=== PATIENT | male | born 2000 | race Caucasian/White ===

== ENCOUNTER 2025-01-16 20:48 | Emergency (ER) | payer OTHER ==
[~2025-01-16] VITALS: Ht 180.3 cm; Wt 122.5 kg
[2025-01-16 20:48] VITALS: BP 160/69
[2025-01-16] MEDS ORDERED: TRAZ150T75 PO (21:01)
[2025-01-16 21:55] LABS: PLATELET COUNT (AUTO) 276 K/uL (152-348); RED BLOOD CELL COUNT(AUTO) 5.34 MIL/uL (4.06-5.63); RED CELL DISTRIBUTION WIDTH 12.4 % (12.1-16.2); WHITE BLOOD COUNT (AUTO) 11.5 K/uL (3.6-10.2)
[2025-01-16 21:56] LABS: *BILIRUBIN,URIN NEGATIVE (NEGATIVE); *BLOOD, URINE NEGATIVE (NEGATIVE); *CLARITY,URINE CLEAR (CLEAR); *KETONES,URINE NEGATIVE (NEGATIVE); *PROTEIN,URINE NEGATIVE (NEGATIVE); *UROBILINOGEN,URINE 1.0 E.U./dl (NORMAL); LEUKOCYTE ESTERASE ,URINE NEGATIVE (NEGATIVE); NITRITE, URINE NEGATIVE (NEGATIVE); UGLUCOSE NEGATIVE (NEGATIVE)
[2025-01-16 22:01] LABS: *COLOR,URINE DARK YELLOW (YELLOW)
[2025-01-16 22:03] LABS: CREATININE 0.9 mg/dL (0.6-1.3); SODIUM SERUM 140.0 mmol/L (136-145); UREA NITROGEN, BLOOD 14.0 mg/dL (7-18)
[2025-01-16] MEDS ORDERED: SWABABLE VALVE TRANSFER SET EA MC ONE (22:08)
[2025-01-16] MEDS ORDERED: IOHEXOL 300MG/ML 100 ML INFUS..BTL ONE (22:08)
[2025-01-16 22:09] LABS: ASPARTATE AMINOTRANSFERASE 13.0 U/L (15-37); TOTAL PROTEIN, SERUM 7.8 g/dL (6.4-8.2)
[2025-01-16] MEDS ORDERED: ONDANSETRON 4 MG/2 ML VIAL ONE (22:09)
[2025-01-16] MEDS ORDERED: DICYCLOMINE HCL LIQ 10 MG/5 ML UDC ONE (22:09)
[2025-01-16 22:16] LABS: SQUAMOUS EPITHELIAL CELL,UR FEW /HPF (NONE SEEN)
[2025-01-16] MEDS: ONDANSETRON 4 MG/2 ML VIAL IV ONE (22:20)
[2025-01-16] MEDS: IV NORMAL SALINE 1000 ML BAG IV ONE (22:20)
[2025-01-16] MEDS: DICYCLOMINE HCL LIQ 10 MG/5 ML UDC PO ONE (22:20)
[2025-01-16] MEDS ORDERED: ONDA4TAB11 PO (22:39)
[2025-01-16] MEDS ORDERED: DICY20TA11 PO (22:39)
[2025-01-17 01:21] VITALS: BP 135/62; TEMP 98; O2SAT 95
== END 2025-01-17 01:23 | disposition home or self-care (01) ==
LOC: ER 21:00
DX: R19.7 Diarrhea, unspecified (principal); R10.32 Left lower quadrant pain; R11.10 Vomiting, unspecified; J02.9 Acute pharyngitis, unspecified; R05.9 Cough, unspecified; F17.210 Nicotine dependence, cigarettes, uncomplicated; F17.290 Nicotine dependence, other tobacco product, uncomplicated; R07.9 Chest pain, unspecified; Z20.822 Contact with and (suspected) exposure to COVID-19
CPT/HCPCS: 99285; 74177; 96374; 71045; 96361; 87426; 87804 ×2; 80076; 80048; 81001; 83690; 85025; 36415; J2405; Q9967; J7040; A4606; A4663